=== PATIENT | female | born 1985 | race Caucasian/White ===

== ENCOUNTER → 2019-07-20 | Outpatient (CLI) | payer OTHER ==
--- NOTE | 2019-07-23 11:22 | Diagnostic Imaging Report ---
INDICATION: Routine screening. COMPARISON: No prior mammograms are available for comparison. TECHNIQUE: 2D and 3D bilateral screening mammography was performed with CAD. FINDINGS: Scattered fibroglandular densities are identified bilaterally. There are benign calcifications in both breasts. No mass or malignant appearing microcalcifications are seen. The axillae are unremarkable. IMPRESSION: No mammographic features suspicious for malignancy are identified. ACR BI-RADS Category 2: Benign findings. Result letter will be mailed to the patient. Note: At least 10% of breast cancer is not imaged by mammography. Dictated by: Dictated on workstation # [id number]
== END ==
LOC: RAD 14:54
PROVIDERS: ATTEND Nurse Practitioner Family
DX: Z12.31 Encounter for screening mammogram for malignant neoplasm of breast (principal); M99.18 Subluxation complex (vertebral) of rib cage
CPT/HCPCS: 77067

== ENCOUNTER → 2021-02-16 | Outpatient (CLI) | payer OTHER ==
--- NOTE | 2021-02-16 08:37 | Diagnostic Imaging Report ---
EXAMINATION: US Abdomen limited. TECHNIQUE: Multiple real-time grayscale images were obtained over the right upper quadrant in various projections. REASON FOR EXAM: Elevated liver enzymes. COMPARISON: None. FINDINGS: The liver is prominent size measuring 18 cm. Increased echogenicity is seen throughout the liver. There are no focal lesions. No intrahepatic biliary dilatation is present. The common bile duct is mildly dilated and measures 8 mm. The main portal vein is hepatopedal. No ascites is seen in the upper abdomen. The gallbladder surgically absent. Sonographic Lubin's sign is negative. The visualized portion of the head of the pancreas are within normal limits. The body and tail of the pancreas are not well visualized due to overlying bowel gas. The visualized portions of the IVC and aorta appear normal. The right kidney measures approximately 11.8 cm in length and has a normal appearance. IMPRESSION: 1. Hepatomegaly with hepatic steatosis. No focal hepatic lesions. 2. Mildly prominent common bile duct likely related to postcholecystectomy changes. Dictated by: Dictated on workstation # [id number]
== END ==
LOC: RAD 06:36
PROVIDERS: ATTEND Nurse Practitioner Family
DX: K76.0 Fatty (change of) liver, not elsewhere classified (principal); Z90.49 Acquired absence of other specified parts of digestive tract
CPT/HCPCS: 76705

== ENCOUNTER 2021-12-06 21:08 | Emergency (ER) | payer MEDICARE ==
[~2021-12-06] VITALS: Ht 173 cm; Wt 137.0 kg
[2021-12-06] MEDS ORDERED: LACTATED RINGERS 1,000 ML IV STA (21:51)
--- NOTE | 2021-12-06 21:56 | ED General ---
General Stated Complaint: N/V, DIZZY, COLD SWEATS Source of Information: Patient History of Present Illness Date Seen by Provider: Dec 06, 2021 Time Seen by Provider: 21:44 Allergies and Home Medications Allergies Coded Allergies: cefazolin (Verified Allergy, Unknown, 12/06/21) trazodone (Verified Allergy, Unknown, 12/06/21) Patient Home Medication List Ciprofloxacin HCl (Ciprofloxacin HCl) 500 Mg Tablet, 500 MG PO BID Prescribed by: KELLY MAS on 12/06/212309 Ondansetron (Ondansetron Odt) 8 Mg Tab.rapdis, 8 MG PO Q6H Prescribed by: KELLY MAS on 12/06/212309 Physical Exam Vital Signs Vital Signs - First Documented 12/06/21 21:33 Temp 36.8 Pulse 121 Resp 18 B/P (MAP) 130/102 (111) Pulse Ox 96 O2 Delivery Room Air Capillary Refill : Height, Weight, BMI Height: '" Weight: lbs. oz. kg; BMI Method: General Appearance: No Apparent Distress, WD/WN, Obese Progress/Results/Core Measures Suspected Sepsis SIRS Temperature: Pulse: Respiratory Rate: Laboratory Tests 12/06/21 21:55: White Blood Count 14.6H Blood Pressure / Mean: Laboratory Tests 12/06/21 21:55: Creatinine 1.56H, Platelet Count 251, Total Bilirubin 1.2H Results/Orders Lab Results Laboratory Tests Test 12/06/21 21:40 12/06/21 21:50 12/06/21 21:55 Range/Units Urine Color YELLOW Urine Clarity SL CLOUDY Urine pH 5.5 5-9 Urine Specific [place] >=1.030 1.016-1.022 Urine Protein 2+ H NEGATIVE Urine Glucose (UA) NEGATIVE NEGATIVE Urine Ketones 1+ H NEGATIVE Urine Nitrite POSITIVE H NEGATIVE Urine Bilirubin 3+ H NEGATIVE Urine Urobilinogen 1.0 < = 1.0 MG/DL Urine Leukocyte Esterase 2+ H NEGATIVE Urine RBC (Auto) TRACE-L H NEGATIVE Urine RBC 5-10 H /HPF Urine WBC 10-25 H /HPF Urine Squamous Epithelial Cells 10-25 H /HPF Urine Renal Epithelial Cells NONE /HPF Urine Crystals NONE /LPF Urine Bacteria MODERATE H /HPF Urine Casts PRESENT /LPF Urine Hyaline Casts 5-10 H /LPF Urine Granular Casts 2-5 H /LPF Urine Mucus NEGATIVE /LPF Urine Culture Indicated YES Urine Test NEGATIVE NEGATIVE Influenza Type A (RT-PCR) Not Detected Not Detecte Influenza Type B (RT-PCR) Not Detected Not Detecte SARS-CoV-2 RNA (RT-PCR) Not Detected Not Detecte White Blood Count 14.6 H 4.3-11.0 10^3/uL Red Blood Count 5.84 H 3.80-5.11 10^6/uL Hemoglobin 17.0 H 11.5-16.0 g/dL Hematocrit 51 35-52 % Mean Corpuscular Volume 88 80-99 fL Mean Corpuscular Hemoglobin 29 25-34 pg Mean Corpuscular Hemoglobin Concent 33 32-36 g/dL Red Cell Distribution Width 13.7 10.0-14.5 % Platelet Count 251 130-400 10^3/uL Mean Platelet Volume 11.0 9.0-12.2 fL Immature Granulocyte % (Auto) 1 % Neutrophils (%) (Auto) 91 H 42-75 % Lymphocytes (%) (Auto) 3 L 12-44 % Monocytes (%) (Auto) 5 0-12 % Eosinophils (%) (Auto) 0 0-10 % Basophils (%) (Auto) 0 0-10 % Neutrophils # (Auto) 13.4 H 1.8-7.8 10^3/uL Lymphocytes # (Auto) 0.4 L 1.0-4.0 10^3/uL Monocytes # (Auto) 0.7 0.0-1.0 10^3/uL Eosinophils # (Auto) 0.1 0.0-0.3 10^3/uL Basophils # (Auto) 0.0 0.0-0.1 10^3/uL Immature Granulocyte # (Auto) 0.1 0.0-0.1 10^3/uL Neutrophils % (Manual) 94 % Lymphocytes % (Manual) 4 % Monocytes % (Manual) 1 % Eosinophils % (Manual) 1 % Blood Morphology Comment NORMAL Erythrocyte Sedimentation Rate 5 0-20 MM/HR Sodium Level 134 L 135-145 MMOL/L Potassium Level 3.8 3.6-5.0 MMOL/L Chloride Level 98 98-107 MMOL/L Carbon Dioxide Level 19 L 21-32 MMOL/L Anion Gap 17 H 5-14 MMOL/L Blood Urea Nitrogen 14 7-18 MG/DL Creatinine 1.56 H 0.60-1.30 MG/DL Estimat Glomerular Filtration Rate 43 BUN/Creatinine Ratio 9 Glucose Level 167 H 70-105 MG/DL Calcium Level 9.6 8.5-10.1 MG/DL Corrected Calcium 8.5-10.1 MG/DL Magnesium Level 1.8 1.6-2.4 MG/DL Total Bilirubin 1.2 H 0.1-1.0 MG/DL Aspartate Amino Transf (AST/SGOT) 90 H 5-34 U/L Alanine Aminotransferase (ALT/SGPT) 128 H 0-55 U/L Alkaline Phosphatase 100 40-136 U/L C-Reactive Protein High Sensitivity 1.05 H 0.00-0.50 MG/DL Total Protein 8.4 H 6.4-8.2 GM/DL Albumin 4.6 H 3.2-4.5 GM/DL Amylase Level 56 25-125 U/L Lipase 12 8-78 U/L Procalcitonin 0.22 H <0.10 NG/ML My Orders Orders - KELLY MAS DO Ed Iv/Invasive Line Start (12/06/21 21:51) Monitor-Rhythm Ecg Trace Only (12/06/21 21:51) Amylase (12/06/21 21:51) Cbc With Automated Diff (12/06/21 21:51) Comprehensive Metabolic Panel (12/06/21 21:51) Hcg,Qualitative Urine (12/06/21 21:51) Lipase (12/06/21 21:51) Magnesium (12/06/21 21:51) Ua Culture If Indicated (12/06/21 21:51) Ed Iv/Invasive Line Start (12/06/21 21:51) Procalcitonin (Pct) (12/06/21 21:51) Hs C Reactive Protein (12/06/21 21:51) Erythrocyte Sedimentation Rate (12/06/21 21:51) Covid 19 Inhouse Test (12/06/21 21:51) Influenza A And B By Pcr (12/06/21 21:51) Isolation Central Supply Req (12/06/21 21:51) Ondansetron Injection (Zofran Injectio (12/06/21 22:00) Lactated Ringers (Lr 1000 Ml Iv Solution (12/06/21 21:51) Ed Iv/Invasive Line Start (12/06/21 21:51) Manual Differential (12/06/21 21:55) Urine Culture (12/06/21 21:40) Ciprofloxacin Iv 400mg/200ml (Cipro Iv S (12/06/21 23:00) Ed Iv/Invasive Line Start (12/06/21 22:53) Lactated Ringers (Lr 1000 Ml Iv Solution (12/06/21 23:00) Ondansetron Injection (Zofran Injectio (12/06/21 23:15) Promethazine Injection (Phenergan Injec (12/06/21 23:30) Diphenhydramine Injection (Benadryl Inje (12/06/21 23:30) Medications Given in ED Current Medications Medications Dose Ordered Sig/Esther Route Start Time Stop Time Status Last Admin Dose Admin Ciprofloxacin/ Dextrose 200 ml @ 200 mls/hr ONCE ONCE IV 12/06/21 23:00 12/06/21 23:59 12/06/21 23:18 200 MLS/HR Lactated Ringer's 1,000 ml @ 0 mls/hr Q0M ONCE IV 12/06/21 23:00 12/06/21 23:01 DC 12/06/21 23:18 0 MLS/HR Ondansetron HCl 4 mg ONCE ONCE IVP 12/06/21 22:00 12/06/21 22:01 DC 12/06/21 22:02 4 MG Ondansetron HCl 4 mg ONCE ONCE IVP 12/06/21 23:15 12/06/21 23:16 DC 12/06/21 23:18 4 MG Vital Signs/I&O 12/06/21 21:33 Temp 36.8 Pulse 121 Resp 18 B/P (MAP) 130/102 (111) Pulse Ox 96 O2 Delivery Room Air Capillary Refill : Progress Note : Progress Note PLACED IN ISOLATION ROOM PPE WORN COVID-19 TESTING DONE GIVEN IV FLUIDS AND ZOFRAN NO VOMITING OR DIARRHEA DURING ER STAY PT TOLERATING ICE CHIPS GIVEN CIPRO FOR UTI HEART RATE DOWN WITH FLUIDS NO HYPOTENSION NO FEVER Departure Impression Primary Impression: Gastroenteritis Additional Impressions: UTI (urinary tract infection) Dehydration Person under investigation for COVID-19 Disposition: 01 HOME, SELF-CARE Condition: Improved Departure-Patient Inst. Decision time for Depature: 23:00 Referrals: RICHARD LARSON DO (PCP/Family) Primary Care Physician Patient Instructions: Viral Gastroenteritis, Adult (DC), COVID-19 Tests, Urinary Tract Infection, Adult (DC), Dehydration, Adult (DC) Add. Discharge Instructions: CLEAR LIQUIDS--WATER, BROTH, JELLO, GATORADE TOMORROW IF YOU ARE BETTER, ADD BRATS DIET TO CLEAR LIQUIDS--BANANAS, RICE, APPLESAUCE, TOAST, SALTINES TYLENOL NEEDED FOR PAIN FOLLOW UP WITH DR. LARSON'S OFFICE IN 1-2 DAYS IF NO BETTER, RETURN TO ER IF WORSE. Scripts Promethazine HCl (Promethazine Suppository) 25 Mg Supp.rect 25 MG RC Q6 for Nausea/Vomiting, #10 SUPP.RECT Prov: KELLY MAS DO 12/06/21 Ondansetron (Ondansetron Odt) 8 Mg Tab.rapdis 8 MG PO Q6H, #10 TAB Prov: KELLY MAS DO 12/06/21 Ciprofloxacin HCl (Ciprofloxacin HCl) 500 Mg Tablet 500 MG PO BID, #14 TAB Prov: KELLY MAS DO 12/06/21 KELLY MAS DO Dec 06, 2021 21:56
[2021-12-06] MEDS ORDERED: ONDANSETRON 4 MG/2 ML (SDV) Z0FRAN IVP ONE ×2 (22:00→23:15)
[2021-12-06 22:06] LABS: BILIRUBIN,URINE 3+ (NEGATIVE); CLARITY,URINE SL CLOUDY; COLOR,URINE YELLOW; GLUCOSE, URINE (UA) NEGATIVE (NEGATIVE); KETONES,URINE 1+ (NEGATIVE); LEUKOCYTE ESTERASE ,URINE 2+ (NEGATIVE); NITRITE,URINE POSITIVE (NEGATIVE); PH,URINE 5.5 (5-9); PROTEIN,URINE 2+ (NEGATIVE)
[2021-12-06 22:08] LABS: BASOPHILS % (AUTO) 0 % (0-10); EOSINOPHILS # (AUTO) 0.1 10^3/uL (0.0-0.3); EOSINOPHILS % (AUTO) 0 % (0-10); HEMATOCRIT 51 % (35-52); LYMPHOCYTES # (AUTO) 0.4 10^3/uL (1.0-4.0); LYMPHOCYTES % (AUTO) 3 % (12-44); MEAN CORPUSCULAR HEMOGLOBIN 29 pg (25-34); MEAN CORPUSCULAR HGB CONC 33 g/dL (32-36); MEAN CORPUSCULAR VOLUME 88 fL (80-99); MONOCYTES # (AUTO) 0.7 10^3/uL (0.0-1.0); MONOCYTES % (AUTO) 5 % (0-12); NEUTROPHILS # (AUTO) 13.4 10^3/uL (1.8-7.8); NEUTROPHILS % (AUTO) 91 % (42-75); PLATELET COUNT 251 10^3/uL (130-400); WHITE BLOOD COUNT 14.6 10^3/uL (4.3-11.0)
[2021-12-06 22:14] LABS: BACTERIA,URINE MODERATE /HPF
[2021-12-06 22:18] LABS: ALBUMIN 4.6 GM/DL (3.2-4.5); CHLORIDE 98 MMOL/L (98-107); POTASSIUM 3.8 MMOL/L (3.6-5.0); SODIUM 134 MMOL/L (135-145)
[2021-12-06 22:19] LABS: CALCIUM 9.6 MG/DL (8.5-10.1)
[2021-12-06 22:20] LABS: AMYLASE 56 U/L (25-125)
[2021-12-06 22:21] LABS: GLUCOSE 167 MG/DL (70-105); TOTAL PROTEIN 8.4 GM/DL (6.4-8.2)
[2021-12-06 22:22] LABS: BILIRUBIN,TOTAL 1.2 MG/DL (0.1-1.0); CARBON DIOXIDE 19 MMOL/L (21-32)
[2021-12-06 22:23] LABS: EOSINOPHILS % (MANUAL) 1 %; LYMPHOCYTES % (MANUAL) 4 %; MONOCYTES % (MANUAL) 1 %; NEUTROPHILS % (MANUAL) 94 %; RBC MORPH NORMAL
[2021-12-06 22:24] LABS: ALKALINE PHOSPHATASE 100 U/L (40-136); CREATININE SERUM 1.56 MG/DL (0.60-1.30); ERYTHROCYTE SEDIMENTATION RATE 5 MM/HR (0-20); GFR ESTIMATED 43
[2021-12-06 22:26] LABS: BUN/CREATININE RATIO 9
[2021-12-06 22:27] LABS: ALANINE AMINOTRANSFERASE 128 U/L (0-55); MAGNESIUM 1.8 MG/DL (1.6-2.4)
[2021-12-06 22:28] LABS: LIPASE 12 U/L (8-78)
[2021-12-06] MEDS ORDERED: LACTATED RINGERS 1,000 ML IV ONE (23:00)
[2021-12-06] MEDS ORDERED: CIPROFLOXACIN IV 400MG/200ML 200 ML IV ONE (23:00)
[2021-12-06] MEDS ORDERED: CIPR500T5 PO (23:10)
[2021-12-06] MEDS ORDERED: ONDA8TAB13 PO (23:10)
[2021-12-06] MEDS ORDERED: PROM25SU44 RC (23:25)
[2021-12-06] MEDS ORDERED: RX-PHENERGAN 25 MG SUPP PPK#3 PR STA (23:27)
[2021-12-06] MEDS ORDERED: RX-ONDANSETRON 4 MG ODT (ZOFRAN) PPK #4 PO STA (23:27)
[2021-12-06] MEDS ORDERED: diphenhydrAMINE 50 MG/ML INJ (BENADRYL) IVP ONE (23:30)
[2021-12-06] MEDS ORDERED: PROMETHAZINE INJ 25 MG/ML (PHENERGAN) AMP IVP ONE (23:30)
[2021-12-07 01:50] VITALS: BP 156/104
== END 2021-12-07 01:50 | disposition home or self-care (01) ==
LOC: EDUNIT# 21:08 → ER 21:13
DX: K52.9 Noninfective gastroenteritis and colitis, unspecified (principal); N39.0 Urinary tract infection, site not specified; E86.0 Dehydration; E66.9 Obesity, unspecified; Z20.822 Contact with and (suspected) exposure to COVID-19
CPT/HCPCS: 36415; 80053; 81000; 82150; 83690; 83735; 84145; 84703; 85007; 85027; 85652; 86141; 87015; 87045; 87046; 87088; 87324; 87449; 87636; 87899; 93041